=== PATIENT | male | born 1985 | race Hispanic/Latino ===

== ENCOUNTER 2017-08-01 19:40 | Emergency (ER) | payer SELFPAY ==
[2017-08-01] MEDS ORDERED: ONDANSETRON HCL 4 MG/2 ML VIAL ONE (20:20)
[2017-08-01] MEDS ORDERED: SODIUM CHLORIDE 0.9% 1000ML 1,000 ML IV ONE (20:20)
[2017-08-01 20:26] LABS: BASOPHILS % (AUTO) 0.5 % (0.0-5.0); EOSINOPHILS % (AUTO) 3.4 % (0.0-8.0); HEMATOCRIT 45.5 % (42-54); LYMPHOCYTES % (AUTO) 29.3 % (21.0-51.0); MEAN CORPUSCULAR HEMOGLOBIN 32.6 pg (27.0-33.0); MEAN CORPUSCULAR HGB CONC 35.3 g/dL (32.0-36.0); MEAN CORPUSCULAR VOLUME 92.5 fL (79-99); MONOCYTES % (AUTO) 6.7 % (3.0-13.0); NEUTROPHILS % (AUTO) 60.1 % (40.0-77.0); NUCLEATED RED BLOOD CELLS 0.1 % (0.0-0.19); PLATELET COUNT (AUTO) 228 K/uL (130-400); RED BLOOD CELL COUNT(AUTO) 4.92 MIL/uL (4.50-6.20); RED CELL DISTRIBUTION WIDTH 12.8 % (11.0-15.5); WHITE BLOOD COUNT (AUTO) 8.7 K/uL (4.8-10.8)
[2017-08-01 20:39] LABS: CREATININE 0.9 mg/dL (0.5-1.5); POTASSIUM 3.7 mmol/L (3.5-5.1)
[2017-08-01 20:44] LABS: ALBUMIN 4.2 g/dL (3.5-5.0); BILIRUBIN,DIRECT 0.1 mg/dL (0.0-0.3); BILIRUBIN,TOTAL 0.9 mg/dL (0.2-1.0); TOTAL PROTEIN, SERUM 8.5 g/dL (6.0-8.3)
[2017-08-01 20:59] LABS: B-TYPE NATRIURETIC PEPTIDE < 5 pg/mL (0-100)
[2017-08-01 21:26] LABS: AMPHET/METH SCREEN,URINE NEGATIVE (NEGATIVE); BARBITURATE SCREEN, URINE NEGATIVE (NEGATIVE); BENZODIAZEPINES SCREEN,URINE NEGATIVE (NEGATIVE); CANNABINOID SCREEN,URINE NEGATIVE (NEGATIVE); COCAINE SCREEN,URINE NEGATIVE (NEGATIVE); OPIATE SCREEN,URINE NEGATIVE (NEGATIVE); PHENCYCLIDINE SCREEN,URINE NEGATIVE (NEGATIVE)
== END 2017-08-01 22:09 | disposition home or self-care (01) ==
LOC: EDH 19:40
DX: R07.9 Chest pain, unspecified (principal); Z72.0 Tobacco use
CPT/HCPCS: 36415; 71045; 80048; 80076; 80305; 82550; 83880; 84484; 85025; 93005; 96361; 96374; 99285; J2405; J7030

== ENCOUNTER 2023-07-20 09:41 | Emergency (ER) | payer OTHER ==
[~2023-07-20] VITALS: Ht 167.6 cm; Wt 106.6 kg
[2023-07-20 09:44] VITALS: BP 120/66; O2SAT 97
[2023-07-20 10:24] LABS: RAPID GROUP A STREP negative (NEGATIVE)
[2023-07-20 10:30] LABS: SARS-CoV-2, RNA, NAAT NEGATIVE SARS CoV-2 (NEGATIVE)
[2023-07-20 10:34] LABS: INFLUENZA TYPE B Negative For Type B (NEGATIVE)
[2023-07-20 10:49] LABS: INFLUENZA TYPE A Positive For Type A (NEGATIVE)
[2023-07-20] MEDS ORDERED: METOCLOPRAMIDE 10 MG/2 ML VIAL IVP ONE (11:00)
[2023-07-20] MEDS ORDERED: ALBUTEROL 0.083% 2.5 MG/3 ML INH IH ONE (11:00)
[2023-07-20] MEDS ORDERED: OSELTAMIVIR PHOSPHATE 75 MG CAP PO ONE (11:00)
[2023-07-20] MEDS ORDERED: GUAIFENESIN 600 MG TABLET.ER PO ONE (11:00)
[2023-07-20] MEDS ORDERED: DEXAMETHASONE SOD PHOSPHATE 4 MG/ML 1ML VIAL IV ONE (11:00)
[2023-07-20] MEDS ORDERED: LACTATED RINGERS 1000ML 1,000 ML IV ONE (11:00)
[2023-07-20] MEDS ORDERED: FAMOTIDINE 20MG VIAL IV ONE (11:00)
[2023-07-20] MEDS ORDERED: KETOROLAC 30MG VIAL (30MG/ML) IVP ONE (11:00)
[2023-07-20 11:02] VITALS: PULSE 107; RESP 18
[2023-07-20] MEDS ORDERED: AUD IH (11:27)
[2023-07-20] MEDS ORDERED: BENZ-39 PO (11:27)
== END 2023-07-20 12:16 | disposition home or self-care (01) ==
LOC: EDH 09:41
DX: J20.8 Acute bronchitis due to other specified organisms (principal); J10.1 Influenza due to other identified influenza virus with other respiratory manifestations; Z20.822 Contact with and (suspected) exposure to COVID-19
CPT/HCPCS: 99284; 96374; 96375; 71045; 87635; 96361; 87880; 87804 ×2; 94640; J1100; C9803; J7120; J3490; J1885; J2765

== ENCOUNTER 2025-04-03 14:36 | Emergency (ER) | payer SELFPAY ==
[~2025-04-03] VITALS: Ht 167.6 cm; Wt 111.1 kg
[~2025-04-03 14:36] MED LIST: AUD IH; BENZ-39 PO
--- NOTE | 2025-04-03 15:24 | EKG ---
[facility] Test Date: 2025-04-03 Test Time: 15:20:55 Pat Name: ELIZABETH PACE Department: ED Room: Gender: M Nurse Infection Control: 1378 : 1985 Requested By: JOSE G KING Order Number: [id number] Reading MD: Justin Russell Measurements Intervals [place] Rate: 93 P: 43 LA: 170 QRS: -34 QRSD: 96 T: 22 QT: 342 QTc: 426 Interpretive Statements Sinus rhythm Left axis deviation Compared to ECG 08/01/2017 19:39:24 ST (T wave) deviation now present Sinus tachycardia no longer present Electronically Signed On 04-04-2025 18:18:26 CDT by Justin Russell Please click the below link to view image of tracing.
[2025-04-03] MEDS: BENZONATATE 100 MG CAPSULE PO STA (15:28)
[2025-04-03 15:57] LABS: SARS-CoV-2, RNA, NAAT NEGATIVE SARS CoV-2 (NEGATIVE)
[2025-04-03 16:04] LABS: INFLUENZA TYPE A Negative For Type A (NEGATIVE); INFLUENZA TYPE B Negative For Type B (NEGATIVE)
[2025-04-03] MEDS ORDERED: BENZ200C53 PO (16:08)
--- NOTE | 2025-04-03 16:09 | ERN ---
ED Note History of Present Illness Stated Complaint: COUGH, CONGESTION Chief Complaint: Cough Time Seen by MD: 14:40 Time Seen by Midlevel: 14:42 Dictation: 39 Old male with no past medical history coming in with complaints of cough congestion chest discomfort when he called. Patient states it started last night. States he he might have had a fever last night as he was sweating. Allergies: Coded Allergies: No Known Drug Allergies (Unverified Allergy, 12/01/11) Home Meds Active Scripts Benzonatate (Benzonatate) 200 Mg Capsule, 1 CAP PO TIDP PRN for cough for 7 Days, #21 CAP 0 Refills Prov:JOSE G KING [employer] 04/03/25 Benzonatate (Tessalon Perles) 100 Mg Cap, 100 MG PO TID for cough, #30 CAP 0 Refills Prov:AGNES AGUIAR Sr., MD 07/20/23 Albuterol Sulfate (Albuterol Sulfate) 2.5 Mg/0.5 Ml Vial.neb, 2.5 MG IH Q6H for wheezing/sob, #20 INH 0 Refills Prov:AGNES AGUIAR Sr., MD 07/20/23 Past Medical History Past Medical History: No Pertinent History Surgical History: None Social History: Negative Review of System Dictation Constitutional: Negative for fever,chills, and weight loss Eyes: Negative for injury, pain,redness, and discharge ENT: Negative for injury,pain or swelling Cardiovascular: Negative for chest pain, palpitations, and edema Respiratory: Complaining of shortness a breath and cough Abdomen/GI: Negative for abdominal pain, nausea, vomiting, diarrhea, and constipation Back: Negative for injury and pain : Negative for injury, bleeding and discharge MS/Extremity: Negative for injury and deformity Skin: Negative for rash, and discoloration Neuro: Negative for headache, weakness, numbness, tingling, and seizure Psych: Negative for suicide ideation, homicidal ideation, and hallucinations Review of Systems: was completed Initial Vital Sign VS Vital Signs Date Time Temp Pulse Resp B/P (MAP) Pulse Ox O2 Delivery O2 Flow Rate FiO2 04/03/25 14:37 99.0 109 16 128/78 96 Room Air 0 04/03/25 14:45 21 Physical Exam Dictation General: awake, alert, NAD Head/Face: Normocephalic, atraumatic Eyes: PERRL, EOMI, vision at baseline ENT: oral cavity clear, TMs clear, no signs of infection Neck: Trachea midline, supple, no nuchal rigidity Cardiovascular: RRR, normal S1/S2, No MRGs, no JVD Respiratory: CTAB, no respiratory distress, No rales or wheezes Abdomen: Soft, non-tender, non-distended, normal bowel sounds, no guarding or rebound. Skin: Warm, dry, normal turgor, no rash MS/Extremity: Pulses equal, no cyanosis, neurovascular intact, FROM Neuro: COAx4, GCS 15, strength 5/5, CN 2-12 intact, normal cerebellar exam, normal gait, Psych: Normal behavior, mood, and affect normal Results (Laboratory/Radiology) Laboratory/Radiology Laboratory Tests Test 04/03/25 15:30 Influenza Type A Antigen Negative For Type A Influenza Type B Antigen Negative For Type B SARS-CoV-2, RNA, NAAT NEGATIVE SARS CoV-2 Group A Streptococcus Rapid POSITIVE (NEGATIVE) *A Labs Reviewed?: Yes X-RAY Comment: EKGs did not at 3:20 p.m. sinus rhythm, left axis deviation, rate 93. No STEMI interpreted by ER MD ED Course ED Course Orders Procedure Category Date Status Time Covid Rna Naat LAB 04/03/25 Complete 14:47 Influenza Type A & B, LAB 04/03/25 Complete Rapid 14:47 Group B Strep Pcr JEIMY 04/03/25 Logged 14:47 Chest 1vw RAD 04/03/25 Taken 14:47 12 Lead Ekg Tracing- EKG 04/03/25 Complete Technical 14:47 Benzonatate 100 Mg PHA 04/03/25 Complete Capsule (Tessalon 100 14:47 Ketorolac PHA 04/03/25 Complete Tromethamine 15mg/Ml 14:47 Acetaminophen 325 Tab PHA 04/03/25 Complete (Tylenol 325mg Tab 14:48 Current Medications Medications (Trade) Dose Ordered Sig/Theodora Route PRN Reason Start Time Stop Time Status Last Admin Dose Admin Acetaminophen (TYLenol 325MG TAB) 650 mg ONCE STAT PO 04/03/25 14:48 04/03/25 14:51 DC 04/03/25 15:28 Benzonatate (Tessalon 100mg Caps) 200 mg ONCE STAT PO 04/03/25 14:47 04/03/25 14:51 DC 04/03/25 15:28 Ketorolac Tromethamine (toRADol) 15 mg ONCE STAT IM 04/03/25 14:47 04/03/25 14:51 DC 04/03/25 15:27 Vital Signs Date Time Temp Pulse Resp B/P (MAP) Pulse Ox O2 Delivery O2 Flow Rate FiO2 04/03/25 16:11 99.0 90 18 127/70 96 Room Air* 0 21 04/03/25 14:45 99.0 92 18 124/72 96 Room Air* 0 21 04/03/25 14:37 99.0 109 16 128/78 96 Room Air 0 Medical Decision Making MDM MDM: 39 Old male with no past medical history coming in with complaints of cough congestion chest discomfort when he called. Patient states it started last night. States he he might have had a fever last night as he was sweating. Patient states what concerned him was he was coughing and sudden epigastric pain. Swabs are negative for influenza COVID and postivie strep. Chest x-ray did not within normal limits. patient has recurrent bronchitis. We will prescribe patient has some coughing medication and told him to take [id number] symptomatic control. Patient verbalized understanding, answered all questions. Differential diagnosis: Viral syndrome, influenza, COVID, strep Rationale: Tests considered and ordered secondary to shared decision making include: Previous outside records reviewed: Old ER visits. Risk of complication and/or morbidity or mortality of patient management: None Medications-Per medication reconciliation Need for hospitalization: Patient does not meet criteria for hospitalization. Need for emergency major/minor surgery: No There are no social concerns with this patient. Prescription drug management Prescriptions will include symptomatic care Patient's prior external medical records from other ER visits were reviewed by me as indicated. Prior testing and results from previous visits were reviewed. Prior tests were taken into account with medical decision making and resource utilization, independent historian/historians were used to obtain complete medical history. I independently interpreted the test that were performed, results were reviewed by me and considered findings on radiology if ordered. Medical management and examination interpretation discussions were had by me with other qualified healthcare professionals as indicated for the patient's care. DX & DISP Disposition: Discharge Departure Impression: Primary Impression: Acute viral bronchitis Additional Impression: Strep sore throat Condition: Stable Scripts Amoxicillin (Amoxicillin) 875 Mg Tablet 1 TAB PO BID for 10 Days, #20 TAB 0 Refills Prov: JOSE G KING NP 04/03/25 Benzonatate (Benzonatate) 200 Mg Capsule 1 CAP PO TIDP PRN for cough for 7 Days, #21 CAP 0 Refills Prov: JOSE G KING NP 04/03/25 Additional Instructions: Prescribed to you cough medication, you can take [id number] decongestants as needed. Follow up with your PCP in 1-2 days. Referrals: SELF,REFERRAL (PCP) Time of Disposition: 16:06 I have reviewed the case, and I agree with, Diagnosis and Plan JOSE G KING NP Apr 03, 2025 16:09
[2025-04-03 16:11] VITALS: BP 127/70; PULSE 90; RESP 18; TEMP 98.9; O2SAT 96
[2025-04-03 16:12] LABS: RAPID GROUP A STREP POSITIVE (NEGATIVE)
[2025-04-03] MEDS ORDERED: AMOX875T2 PO (16:21)
--- NOTE | 2025-04-03 16:37 | HMCIMG ---
EXAM: CR Chest, 1 View. CLINICAL HISTORY: cough COMPARISON: None provided. FINDINGS: LUNGS: There is no mass, infiltrate, or acute pulmonary abnormality. PLEURAL SPACES: No pleural effusion or pneumothorax. MEDIASTINUM: The cardiomediastinal silhouette is within normal limits. BONES: No acute osseous abnormality. IMPRESSION: No acute cardiopulmonary pathology is evident. /[place]
== END 2025-04-03 16:11 | disposition home or self-care (01) ==
LOC: EDH 14:36
DX: J20.8 Acute bronchitis due to other specified organisms (principal); J02.0 Streptococcal pharyngitis; B97.89 Other viral agents as the cause of diseases classified elsewhere; Z20.822 Contact with and (suspected) exposure to COVID-19
CPT/HCPCS: 99285; 71045; 87635; 87880; 87804 ×2; 96372; 93005; J1885